=== PATIENT | female | born 1990 | race Caucasian/White ===

== ENCOUNTER 2019-07-30 12:44 | Day surgery (SDC) | payer MEDICAID, SELFPAY ==
[~2019-07-30] VITALS: Ht 157.5 cm; Wt 107.0 kg
[2019-07-30] MEDS ORDERED: ONDANSETRON HCL 4 MG/2 ML VIAL IVP PRN ×2 (16:00→16:15)
[2019-07-30] MEDS ORDERED: HYDROmorphone 1 MG INJ. 1 MG/ML AMPUL IVP PRN (16:15)
[2019-07-30] MEDS ORDERED: BUPIVACAINE /EPINEPHRINE/PF 0.25% 30 ML VIAL INJ ONE (16:52)
[2019-07-30] MEDS ORDERED: SUCCINYLCHOLINE CHLORIDE 20 MG/ML(QUELICIN) ONE (16:52)
[2019-07-30] MEDS ORDERED: ROCURONIUM BROMIDE 10 MG/ML (ZEMURON) ONE (16:52)
[2019-07-30] MEDS ORDERED: NS IRRIG SOLN 1000 ML IR ONE (16:52)
[2019-07-30] MEDS ORDERED: NS 1000 ML IV.SOLN IV ONE (16:52)
[2019-07-30] MEDS ORDERED: LR 1,000 ML IV.SOLN IV ONE (16:52)
[2019-07-30] MEDS ORDERED: ISOFLURANE 15 MIN GAS INH ONE (16:52)
[2019-07-30] MEDS ORDERED: fentaNYL CITRATE/PF 100 MCG/2 ML AMP IVP ONE (16:52)
[2019-07-30] MEDS ORDERED: ONDANSETRON HCL 4 MG/2 ML VIAL ONE ×2 (16:52→18:16)
[2019-07-30] MEDS ORDERED: HYDROmorphone 2 MG/ML VIAL IVP ONE (16:52)
[2019-07-30] MEDS ORDERED: WATER FOR IRRIGATION,STERILE 1,000 ML IRRIG.SOLN IR ONE (16:52)
[2019-07-30] MEDS ORDERED: CEFAZOLIN 2 GM IVPB PREMIX 50 ML IV ONE (16:52)
[2019-07-30] MEDS ORDERED: PROPOFOL 200MG/ 20ML VIAL (DIPRIVAN) IV ONE (16:52)
[2019-07-30] MEDS ORDERED: KETOROLAC TROMETHAMINE 30 MG VIAL ONE (16:52)
[2019-07-30] MEDS ORDERED: SUGAMMADEX SODIUM 200 MG/2 ML VIAL IV ONE (16:52)
[2019-07-30] MEDS ORDERED: DEXAMETHASONE SOD PHOSPHATE 4 MG/ML VIAL ONE (16:52)
[2019-07-30] MEDS: HYDROmorphone 1 MG INJ. 1 MG/ML AMPUL IVP PRN ×2 (16:58→17:12)
[2019-07-30] MEDS ORDERED: HYDROmorphone 1 MG INJ. 1 MG/ML AMPUL ONE (17:11)
[2019-07-30 19:05] VITALS: BP_SYST 114
== END 2019-07-30 21:33 | disposition home or self-care (01) ==
LOC: SDS 12:44 → SMU 12:45 → SDS 21:33
PROVIDERS: ATTEND Obstetrics & Gynecology
DX: N80.9 Endometriosis, unspecified (principal); N73.6 Female pelvic peritoneal adhesions (postinfective); K21.9 Gastro-esophageal reflux disease without esophagitis; E66.01 Morbid (severe) obesity due to excess calories
CPT/HCPCS: 58660; C1727; C9399; J0330; J0690; J1100; J1170 ×2; J1885; J2405; J2704; J3010; J3490; J7030; J7120; U0002